=== PATIENT | female | born 1965 | race Caucasian/White ===

== ENCOUNTER 2019-12-21 19:47 | Emergency (ER) | payer BC, SELFPAY ==
[2019-12-21 19:52] VITALS: BP 126/77; PULSE 86; RESP 16; TEMP 36.6; O2SAT 95
--- NOTE | 2019-12-21 20:00 | DI.RAD_ITS ---
EXAM: XR LUMBAR SPINE AP, LAT CLINICAL HISTORY: back injury, low back pain with radiculopathy TECHNIQUE: COMPARISON: No exams were available for comparison FINDINGS: Three views were obtained. The intervertebral disc spaces are fairly well maintained except for slig ht loss of height at L5-S1. Mild hypertrophic changes of the facet joints and vertebral endplates no giuliana consistent with degenerative change. No evidence of acute fracture or dislocation. No gross spo ndylolysis or spondylolisthesis. IMPRESSION: No evidence of acute process. RADIATION DOSE DELIVERED: Total DLP
--- NOTE | 2019-12-21 20:10 | ED.GENADUL_ITS ---
Discharge Plan Disposition Patient Disposition: HOME Condition: Good Discharge Details Clinical Impression: Lumbago with sciatica, left side ED Provider: Fatoumata Bloom Home Meds and New Rx's Prescriptions: New ibuprofen 200 mg tablet 600 mg PO Q6H Qty: 60 RF: 0 Continued pramipexole [Mirapex] 1 mg Tablet 1 mg PO BID RF: 0 Discharge Instructions Instructions: Low Back Strain (ED) Additional Instructions: No lifting greater than 5 pounds no twisting at the waist. Take ibuprofen 600 mg 4 times daily with food for 5 days then as needed for pain Can add acetaminophen 650 for breakthrough pain up to 4 times daily You can use heat or ice Follow-up with occupational medicine No work until released by PCP or occupational medicine Stand Alone Forms: Work Release Medical Decision Making Back injury while at work. Denies any similar previous history pain radiating to left hip. No signs of cord compression. X-ray of the lumbar spine shows no acute findings. She is given 30 mg of IM Toradol she will be discharged with conservative management including scheduled ibuprofen rest heat and or ice. She will follow-up with occupational medicine. She was advised no work until they release her. HPI General Date/Time Provider Initiated Documentation: 12/21/19 20:00 . Limitations to Documentation: no limitations . Information obtained by: patient . 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 She has had no saddle anesthesia no bowel incontinence no urinary retention no signs of cord compression syndrome Related Data Home Medications Medication Instructions Recorded Confirmed ibuprofen 600 mg PO Q6H #60 tab 12/21/19 pramipexole [Mirapex] 1 mg PO BID 12/21/19 12/21/19 Previous Rx's Medication Instructions Recorded ibuprofen 600 mg PO Q6H #60 tab 12/21/19 Allergies Allergy/AdvReac Type Severity Reaction Status Date / Time No Known Drug Allergies Allergy Unverified 12/21/19 20:04 General Stated Complaint: Nk/Back Pain SHABANA: 4 Review of Systems All systems reviewed & are unremarkable except as noted in HPI and below Constitutional Constitutional: Denies fever(s), Denies frequent falls and Denies weakness Gastrointestinal Gastrointestinal: Denies nausea Integumentary/Breasts Skin/Breast: Denies lesions and Denies rash Neurologic Neurologic: Denies frequent falls, Reports radicular pain, Reports paresthesias (Radiating to the left) and Denies weakness ON LICENSE OF [facility] Medical History (Updated 12/21/19 @ 20:43 by Fatoumata Bloom NP) Restless leg syndrome Surgical History (Updated 12/21/19 @ 20:05 by Cami Loving) History of partial hysterectomy Social History Alcohol Intake: current Alcohol Intake frequency: holidays/special occasions on ly Drug use: Never Substance use type: does not use Do you feel safe at home: Yes Do you feel safe in your relationship?: Yes Exam Const General: cooperative, healthy appearing, comfortable, no acute distress and well developed Nutritional Appearance: average body habitus Orientation: alert, awake and oriented x3 HENMT Head: normal to inspection, normocephalic and atraumatic Mouth: oral mucosae normal Chest Chest: normal inspection of the chest Resp Effort & Inspection: normal respiratory effort Cardio Rate: regular rate Rhythm: regular rhythm (Strong pedal pulses bilaterally) Back/Spine/Pelvis Back: No ecchymosis and back tenderness (Entire low back) Thoracic/Lumbar Spine: thoracic and lumbar spine normal to inspection Skin General skin exam: no rashes or lesions noted Neuro General: patient alert, patient awake and patient oriented x3 Cranial Nerves: CN's II-XI intact bilaterally Cognition: normal cognition Speech: speech normal Gait: normal gait Motor: muscle tone normal throughout and strength 5/5 throughout Sensory Exam: no sensory deficits noted Extrem General: normal to inspection, full ROM, capillary refill normal and no pedal edema Course Vital Signs Vital signs: Vital Signs Temperature 36.6 C 12/21/19 19:52 Pulse 86 12/21/19 19:52 Respiratory Rate 16 12/21/19 19:52 Blood Pressure 126/77 12/21/19 19:52 Pulse Oximetry 95 12/21/19 19:52 Temperature 36.6 C 12/21/19 19:52 Temperature Source Tympanic 12/21/19 19:52 Pulse 86 12/21/19 19:52 Respiratory Rate 16 12/21/19 19:52 Respiratory Effort Non-Labored 09/13/20 19:55 Blood Pressure 126/77 09/13/20 19:52 Pulse Oximetry 95 12/21/19 19:52 Oxygen Delivery Method Room Air 12/21/19 19:52 Oxygen Flow Rate 0 12/21/19 19:52 Pain Level 5 12/21/19 19:52
--- NOTE | 2019-12-21 20:36 | DI.VRAD_ITS ---
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 COMPARISON: No relevant prior studies available. FINDINGS: Mild degenerative spurring. The bony structures are in anatomic alignment. No fracture is present. No radiopaque foreign body is identified. Parasinous soft tissues unremarkable. IMPRESSION: No evidence of acute bony abnormality. Dictated and Authenticated by: Iggy Chilel MD. Ordering:BURKE Ham MD
[2019-12-21] MEDS: Ketorolac 30 MG/ML VIAL IM (20:53)
[2019-12-21 21:18] VITALS: BP 101/69; PULSE 61; RESP 16; O2SAT 98
== END 2019-12-21 21:25 | disposition home or self-care (01) ==
PROVIDERS: Emergency Provider Nurse Practitioner Acute Care
DX: M54.42 Lumbago with sciatica, left side (principal); X50.0XXA Overexertion from strenuous movement or load, initial encounter; Y99.0 Civilian activity done for income or pay
CPT/HCPCS: 96372; 99284; 72100; J1885